=== PATIENT | female | born 1995 ===

== ENCOUNTER 2021-01-07 08:58 | Emergency (ER) | payer SELFPAY ==
[2021-01-07 09:21] VITALS: BP 120/68
[2021-01-07] MEDS ORDERED: IBUPROFEN 800 MG TAB PO ONE (11:44)
--- NOTE | 2021-01-07 11:50 | Emergency Department Report ---
<HAYLIE LANTIGUA - Last Filed: 01/07/21 14:42> ED Back Pain/Injury HPI - General Chief Complaint: Back Pain/Injury Stated Complaint: LOW BACK PAIN Time Seen by Provider: 01/07/21 11:42 Source: patient Limitations: No Limitations - History of Present Illness Initial Comments: This is a 25-year-old female with complaints of low back pain x3 days associated with urinary frequency. She denies any urine or bowel incontinence. No nausea no vomiting no diarrhea no chest pain or shortness of breath. Patient has a past medical history of fibromyalgia. she also reports falling down 8 steps about 6 weeks ago . Patient in no distress but is tearful her pain scale is 10/10. She currently works as a restaurant cashier and states that her back pain was so severe she was unable to work -: days(s) (3) Similar Symptoms Previously: No Place: work Radiation: none Severity scale (0 -10): 10 Quality: aching Consistency: constant Improves With: sitting upright Worsens With: movement, walking Associated Symptoms: other (urinary frequency ). denies: weakness, chest pain, numbness, difficulty walking, cough, difficulty urinating, incontinence, fever/chills, constipation, nausea/vomiting, seizure, shortness of breath - Related Data Previous Rx's Medication Instructions Recorded Last Taken Type Ibuprofen [Motrin] 800 mg PO Q8HR PRN #21 tablet 01/07/21 Unknown Rx methOCARBAMOL [Robaxin TAB] 750 mg PO BID PRN #20 tab 01/07/21 Unknown Rx Allergies Allergy/AdvReac Type Severity Reaction Status Date / Time No Known Allergies Allergy Unverified 01/07/21 09:18 ED Past Medical Hx - Past Medical History Previous Medical History?: Yes Additional medical history: fibromyalgia - Surgical History Past Surgical History?: No - Medications Home Medications: Home Medications Medication Instructions Recorded Confirmed Last Taken Type Ibuprofen [Motrin] 800 mg PO Q8HR PRN #21 tablet 01/07/21 Unknown Rx methOCARBAMOL [Robaxin TAB] 750 mg PO BID PRN #20 tab 01/07/21 Unknown Rx ED Physical Exam - General Limitations: No Limitations General appearance: in no apparent distress - Head Head exam: Present: atraumatic - Eye Eye exam: Present: normal appearance - ENT ENT exam: Present: normal exam, mucous membranes moist - Neck Neck exam: Present: normal inspection, full ROM. Absent: tenderness (no vertebral tenderness) - Respiratory Respiratory exam: Present: normal lung sounds bilaterally. Absent: respiratory distress, wheezes, rales, rhonchi - Cardiovascular Cardiovascular Exam: Present: regular rate, normal heart sounds - GI/Abdominal GI/Abdominal exam: Present: soft. Absent: distended, tenderness, guarding - Extremities Exam Extremities exam: Present: normal inspection, normal capillary refill - Back Exam Back exam: Present: paraspinal tenderness (to lumbar region ), vertebral tendern ess (lumbar region) - Neurological Exam Neurological exam: Present: alert, oriented X3 - Psychiatric Psychiatric exam: Present: normal affect, normal mood - Skin Skin exam: Present: warm, dry, intact, normal color ED Medical Decision Making - Radiology Data Radiology results: report reviewed Fluoro Time In Minutes: LUMBAR SPINE 3 VIEWS INDICATION / CLINICAL INFORMATION: low back pain vertebral point tenderness. COMPARISON: None available. FINDINGS: VERTEBRAE: No acute fracture. No significant malalignment. DISC SPACES / FACET JOINTS:No significant abnormality. PARASPINAL SOFT TISSUES:No significant abnormality. ADDITIONAL FINDINGS: None. - Medical Decision Making 25-year-old female presents to emergency room with complaint of low back pain x3 days. She also reported a history of falling down 8 steps 6 weeks ago she. The back pain was associated with urinary frequency but no urinary or bladder incontinence. Patient has a past medical history of fibromyalgia. Upon examination she had vertebral tenderness to her lumbar region. X-ray of her lumbar spine was done and there were no acute findings. Her urine was negative for any infection or blood. All findings were discussed with patient plan is for patient to be discharged home follow-up with her primary care doctor she was also referred to Dr. Lubin. Rx for Motrin 800 and Robaxin 750 given to patient Critical Care Time: No ED Disposition Disposition: DC-01 TO HOME OR SELFCARE Is pt being admited?: No Does the pt Need Aspirin: No Condition: Stable Instructions: Acute Back Pain, Adult, Back Exercises, [id number] Additional Instructions: Xray results LUMBAR SPINE 3 VIEWS INDICATION / CLINICAL INFORMATION: low back pain vertebral point tenderness. COMPARISON: None available. FINDINGS: VERTEBRAE: No acute fracture. No significant malalignment. DISC SPACES / FACET JOINTS:No significant abnormality. PARASPINAL SOFT TISSUES:No significant abnormality. ADDITIONAL FINDINGS: None. Please follow-up with your primary care doctor in 3 to 5 days take medications as prescribed. Prescriptions: Ibuprofen [Motrin] 800 mg PO Q8HR PRN #21 tablet PRN Reason: Pain , Severe (7-10) methOCARBAMOL [Robaxin TAB] 750 mg PO BID PRN #20 tab PRN Reason: Spasms Referrals: SAMAN AREVALO MD [Primary Care Provider] - 3-5 Days RONALD DE MD [Staff Physician] - 3-5 Days Forms: Work/School Release Form Time of Disposition: 14:31 <DELTA ROQUE - Last Filed: 01/07/21 17:49> ED Review of Systems ROS: Stated complaint: LOW BACK PAIN Other details as noted in HPI ED Course Vital Signs 01/07/21 01/07/21 09:20 12:15 Temperature 99.3 F Pulse Rate 74 Respiratory 18 16 Rate Blood Pressure 120/68 O2 Sat by Pulse 98 Oximetry ED Medical Decision Making - Lab Data Labs 01/07/21 Unknown Urine Color Yellow Urine Turbidity Slightly-cloudy Urine pH 5.0 Ur Specific [place] 1.019 Urine Protein <15 mg/dl Urine Glucose (UA) Neg Urine Ketones 20 Urine Blood Mod Urine Nitrite Neg Urine Bilirubin Neg Urine Urobilinogen < 2.0 Ur Leukocyte Esterase Neg Urine WBC (Auto) 1.0 Urine RBC (Auto) 1.0 U Epithel Cells (Auto) 13.0 Urine Mucus Few Urine HCG, Qual Negative Critical care attestation.: If time is entered above; I have spent that time in minutes in the direct care of this critically ill patient, excluding procedure time.
[2021-01-07 13:04] LABS: Bilirubin,Urine NEG (Negative); Blood,Urine MOD (Negative); Color,Urine Yellow (Yellow); Mucus,Urine FEW /HPF; Protein,Urine <15 mg/dL mg/dL (Negative); Urobilinogen,Urine < 2.0 mg/dL (<2.0)
[2021-01-07 13:07] LABS: HCG Qualitative,Urine Negative (Negative)
--- NOTE | 2021-01-07 14:24 | XRay Report ---
LUMBAR SPINE 3 VIEWS INDICATION / CLINICAL INFORMATION: low back pain vertebral point tenderness. COMPARISON: None available. FINDINGS: VERTEBRAE: No acute fracture. No significant malalignment. DISC SPACES / FACET JOINTS:No significant abnormality. PARASPINAL SOFT TISSUES:No significant abnormality. ADDITIONAL FINDINGS: None. Signer Name: Mesfin Royal MD Signed: 01/07/2021 2:20 PM Workstation Name: [id number]
== END 2021-01-07 14:35 | disposition home or self-care (01) ==
LOC: ED 08:58
DX: M54.5 Low back pain (principal); Z79.899 Other long term (current) drug therapy
CPT/HCPCS: 72100; 81001; 81025